=== PATIENT | female | born 1935 | race Caucasian/White ===

== ENCOUNTER → 2022-04-01 | Day surgery (SDC) | payer MEDICARE, OTHER ==
[~2022-04-01] VITALS: Ht 160 cm; Wt 65.8 kg
[~2022-04-01] MED LIST: ALLEGRA ALLERG180 MG PO; ASPIRIN EC81 MG PO; CELECOXIB200 MG PO; LIPITOR40 MG PO; SINGULAIR10 MG PO; TOPROL XL 50 MG50 MG PO; XYZAL5 MG PO
[2022-04-01 08:34] LABS: HCT 40.6 % (37.0-47.0); HGB 13.3 g/dl (12.5-16.0); MCH 29.8 pg (25.0-31.0); MCHC 32.8 g/dL (32.0-36.0); MPV 11.4 fL (6.0-9.5); RBC 4.46 M/uL (4.20-5.40); RDW 14.3 % (11.5-14.0); WBC 6.3 K/uL (4.0-10.5)
[2022-04-01 09:09] LABS: ALBUMIN 3.6 g/dL (3.4-5.0); BILIRUBIN - TOTAL 0.4 mg/dL (0.2-1.0); BUN/CREAT RATIO (CALC) 16.2 RATIO; CREATININE 0.74 mg/dL (0.51-0.95); GLOBULIN (CALCULATION) 2.7 g/dL; POTASSIUM 4.1 mmol/L (3.5-5.1); TOTAL PROTEIN 6.3 g/dL (6.4-8.2)
== END | disposition home or self-care (01) ==
LOC: FAS 07:22
PROVIDERS: Surgery
DX: K22.2 Esophageal obstruction (principal); K21.00 Gastro-esophageal reflux disease with esophagitis, without bleeding; K29.70 Gastritis, unspecified, without bleeding; K31.9 Disease of stomach and duodenum, unspecified; R19.5 Other fecal abnormalities; I10 Essential (primary) hypertension; E78.00 Pure hypercholesterolemia, unspecified; I48.91 Unspecified atrial fibrillation; Z88.1 Allergy status to other antibiotic agents; Z79.899 Other long term (current) drug therapy; Z87.891 Personal history of nicotine dependence
CPT/HCPCS: 36415; 80053; C1726; J1610; J2250; J2704; J7120